=== PATIENT | male | born 1975 | race Caucasian/White ===

== ENCOUNTER 2020-02-20 23:02 | Emergency (ER) | payer SELFPAY ==
[~2020-02-20] VITALS: Ht 175.3 cm; Wt 81.6 kg
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
[2020-02-20] MEDS ORDERED: TETANUS AND DIPHTHERIA TOX/PF 0.5 ML VIAL. VAX IM ONE (23:15)
[2020-02-20] MEDS ORDERED: IV RINGERS SOLUTION,LACTATED 1,000 ML IV SCH (23:15)
[2020-02-20] MEDS ORDERED: MORPHINE SULFATE 4 MG/ML DISP.SYRIN. IV ONE (23:15)
[2020-02-20] MEDS ORDERED: MORPHINE SULFATE 10 MG/ML SYRINGE. SQ ONE (23:15)
--- NOTE | 2020-02-20 23:26 | EKG ---
[address] [address] Test Date: 2020-02-20 Test Time: 23:19:56 Pat Name: FARHANA HUDSON Department: Room: Gender: M Social Media Campaign Manager: : 1987-01-03 Requested By: DG DA SILVA Order Number: [id number] Reading MD: Measurements Intervals [place] Rate: 80 P: -25 CA: 148 QRS: 75 QRSD: 100 T: 42 QT: 368 QTc: 428 Interpretive Statements SINUS RHYTHM NO SPECIFIC ECG ABNORMALITIES RI6.02 No previous ECG available for comparison
[2020-02-20 23:30] LABS: BASO # 0.1 x10^3/uL (0.0-0.2); BASO % 0 % (0-3); EOS # 0.1 x10^3/uL (0.0-0.7); EOS % 1 % (0-3); HEMATOCRIT 42.3 % (39.0-53.0); HEMOGLOBIN 13.9 g/dL (13.0-17.5); LYMPH # 2.6 x10^3/uL (1.0-4.8); LYMPH % 22 % (24-48); MEAN CORPUSCULAR HEMOGLOBIN 32 pg (25-35); MEAN CORPUSCULAR HGB CONC 33 g/dL (31-37); MEAN CORPUSCULAR VOLUME 98 fL (79-100); MONO # 0.9 x10^3/uL (0.0-1.1); MONO % 8 % (0-9); NEUT # 8.5 x10^3uL (1.8-7.7); NEUT % 70 % (31-73); PLATELET COUNT 258 x10^3/uL (140-400); RED BLOOD COUNT 4.32 x10^6/uL (4.30-5.70); RED CELL DISTRIBUTION WIDTH 13.1 % (11.5-14.5); WHITE BLOOD COUNT 12.2 x10^3/uL (4.0-11.0)
[2020-02-20 23:40] LABS: BARBITURATES NEG (NEG); BENZODIAZEPINES NEG (NEG); CANNABINOIDS POS (NEG); COCAINE NEG (NEG); METHADONE NEG (NEG); OPIATES NEG (NEG); PHENCYCLIDINE NEG (NEG)
[2020-02-20 23:41] LABS: CALCIUM 10.2 mg/dL (8.5-10.1); CREATININE 1.4 mg/dL (0.7-1.3); GFR 59.1; POTASSIUM 3.9 mmol/L (3.5-5.1)
[2020-02-20 23:44] LABS: ALBUMIN 3.9 g/dL (3.4-5.0); DIRECT BILIRUBIN 0.1 mg/dL (0.0-0.2); TOTAL BILIRUBIN 0.4 mg/dL (0.2-1.0)
[2020-02-20 23:46] LABS: AMPHETAMINE/METHAMPHETAMINE POS (NEG)
[2020-02-20 23:52] LABS: BILIRUBIN,URINE NEG (NEG); CLARITY,URINE CLEAR; COLOR,URINE YELLOW; GLUCOSE,URINE NEG (NEG); UROBILINOGEN,URINE 0.2 mg/dL (0.2 mg/dL)
[2020-02-20 23:53] LABS: BACTERIA,URINE 0 /HPF (0-FEW); NITRITE,URINE NEG (NEG); RBC,URINE OCC /HPF (0-2); SQUAMOUS EPITHELIAL CELL,UR OCC /LPF; WBC,URINE OCC /HPF (0-4)
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
[2020-02-21] MEDS ORDERED: DIPH,PERTUSS(ACELL),TET VAC/PF 0.5 ML SYRINGE. VAX IM ONE
[2020-02-21] MEDS ORDERED: MORPHINE SULFATE 4 MG/ML DISP.SYRIN. IV ONE
[2020-02-21] MEDS ORDERED: IV NORMAL SALINE 50ML 50 ML ONE (00:07)
[2020-02-21] MEDS ORDERED: cefTRIAXone SODIUM 1 GM VIAL ONE (00:07)
[2020-02-21 00:30] VITALS: BP 99/57
== END 2020-02-21 01:03 | disposition short-term general hospital (02) ==
LOC: EDBD 23:02 → ER 23:02
DX: S81.832A Puncture wound without foreign body, left lower leg, initial encounter (principal); S82.142A Displaced bicondylar fracture of left tibia, initial encounter for closed fracture; X95.8XXA Assault by other firearm discharge, initial encounter; Y93.89 Activity, other specified; Y92.89 Other specified places as the place of occurrence of the external cause; Y99.8 Other external cause status
CPT/HCPCS: 29505; 36415; 71045; 73562; 73590; 80048; 80076; 80307; 81001; 82550; 84484; 85025; 85610; 85730; 86850; 86900; 86901; 90471; 90715; 93005; 96360; 96365; 96372; 96375; 99285; J0696; J2270; J7120